=== PATIENT | female | born 1935 ===

== ENCOUNTER 2023-01-14 13:42 | Inpatient (IN) | payer OTHER ==
[~2023-01-14] VITALS: Ht 149.9 cm; Wt 34.5 kg
[2023-01-15 20:25] VITALS: BP 169/55; TEMP 97.9; O2SAT 96
[2023-01-15] MEDS ORDERED: ACET-2030 PO (22:05)
[2023-01-15] MEDS ORDERED: LIDO30AD10 TP (22:05)
[2023-01-15] MEDS ORDERED: ASPI81TA31 PO (22:05)
[2023-01-15] MEDS ORDERED: LEVO75TA7 PO (22:05)
[2023-01-15] MEDS ORDERED: OMEP20TA5 PO (22:05)
[2023-01-15] MEDS ORDERED: VALS40TA12 PO (22:05)
[2023-01-15] MEDS ORDERED: APIX5TAB PO (22:05)
[2023-01-15] MEDS ORDERED: CARV6.252 PO (22:05)
[2023-01-15] MEDS ORDERED: ATOR20TA PO (22:05)
[2023-01-15] MEDS ORDERED: LEVO50TA8 PO (22:05)
[2023-01-15] MEDS ORDERED: INSU100I40 SQ (22:05)
[2023-01-15] MEDS ORDERED: ESCI5TAB16 PO (22:05)
[2023-01-15] MEDS ORDERED: CHOL200026 PO (22:05)
[2023-01-15] MEDS ORDERED: SIME80TA15 PO (22:05)
[2023-01-15] MEDS ORDERED: METO10TA3 PO (22:05)
[2023-01-15] MEDS ORDERED: ANAS1TAB50 PO (22:11)
[2023-01-15] MEDS ORDERED: AMLO10TA4 PO (22:11)
[2023-01-15] MEDS ORDERED: MELATONIN 3 MG TABLET PO PRN (23:30)
[2023-01-16] MEDS ORDERED: ACETAMINOPHEN ES 500 MG TABLET PO PRN (03:30)
[2023-01-16] MEDS ORDERED: DEXTROSE 50% 50 ML DISP.SYRIN IV PRN (04:30)
[2023-01-16] MEDS: BLOOD SUGAR DIAGNOSTIC 1 EACH STRIP VI SCH ×4 (06:22→20:36)
[2023-01-16] MEDS: LEVOTHYROXINE SODIUM 50 MCG TABLET PO SCH (06:31)
[2023-01-16 06:43] VITALS: BP 173/55; TEMP 97.5; O2SAT 98
[2023-01-16] MEDS ORDERED: LEVOTHYROXINE SODIUM 50 MCG TABLET PO SCH (07:00)
[2023-01-16] MEDS ORDERED: SIMETHICONE 80 MG TAB.CHEW PO PRN (07:00)
[2023-01-16] MEDS ORDERED: METOCLOPRAMIDE HCL 10 MG TABLET PO SCH (07:30)
[2023-01-16 07:57] VITALS: BP 180/61; TEMP 97.7; O2SAT 99
[2023-01-16] MEDS ORDERED: CARVEDILOL 6.25 MG TABLET PO SCH (08:00)
[2023-01-16] MEDS: INSULIN REGULAR, HUMAN 300 UNIT/3 ML VIAL SQ PRN ×4 (08:47→20:50)
[2023-01-16] MEDS ORDERED: LIDOCAINE 5% PATCH TD SCH (09:00)
[2023-01-16] MEDS ORDERED: VALSARTAN 40 MG TABLET PO SCH (09:00)
[2023-01-16] MEDS ORDERED: ESCITALOPRAM OXALATE 10 MG TABLET PO SCH (09:00)
[2023-01-16] MEDS ORDERED: APIXABAN 2.5 MG TABLET PO SCH (09:00)
[2023-01-16] MEDS ORDERED: AMLODIPINE 10 MG TABLET PO SCH (09:00)
[2023-01-16] MEDS ORDERED: ASPIRIN 81 MG TAB.CHEW PO SCH (09:00)
[2023-01-16] MEDS ORDERED: ANASTROZOLE 1 MG TABLET PO SCH (09:00)
[2023-01-16] MEDS ORDERED: ACETAMINOPHEN ES 500 MG TABLET- SA PATIENTS-PAIN ONLY PO PRN (10:30)
[2023-01-16] MEDS ORDERED: CHOLECALCIFEROL 400 UNITS TABLET PO SCH (10:30)
[2023-01-16] MEDS ORDERED: CHOL-35 PO (10:36)
[2023-01-16] MEDS ORDERED: ACETAMINOPHEN 325 MG TABLET PO PRN (10:45)
[2023-01-16] MEDS ORDERED: CHOLECALCIFEROL 1,000 UNIT TABLET PO SCH ×2 (10:45→21:00)
[2023-01-16] MEDS: ASPIRIN 81 MG TAB.CHEW PO SCH (11:12)
[2023-01-16] MEDS: ESCITALOPRAM OXALATE 10 MG TABLET PO SCH (11:13)
[2023-01-16] MEDS: CARVEDILOL 6.25 MG TABLET PO SCH ×2 (11:13→17:08)
[2023-01-16] MEDS: AMLODIPINE 10 MG TABLET PO SCH (11:14)
[2023-01-16] MEDS: APIXABAN 5 MG TABLET PO SCH ×2 (11:15→17:10)
[2023-01-16] MEDS: VALSARTAN 40 MG TABLET PO SCH (11:42)
[2023-01-16] MEDS: ANASTROZOLE 1 MG TABLET PO SCH (11:42)
[2023-01-16] MEDS: LIDOCAINE 5% PATCH TD SCH (12:33)
[2023-01-16] MEDS: METOCLOPRAMIDE HCL 10 MG TABLET PO SCH ×2 (12:34→17:07)
[2023-01-16 14:37] LABS: BASOPHILS % (AUTO) 0.8 % (0.0-2.0); EOSINOPHILS # (AUTO) 0.1 K/uL (0.0-0.7); EOSINOPHILS % (AUTO) 2.3 % (0.0-7.0); HEMATOCRIT 33.6 % (31.2-41.9); HEMOGLOBIN 11.2 g/dL (10.9-14.3); LYMPHOCYTES # (AUTO) 0.6 K/uL (0.8-4.8); LYMPHOCYTES % (AUTO) 11.1 % (20.5-51.5); MEAN CORPUSCULAR HEMOGLOBIN 29.9 uug (24.7-32.8); MEAN CORPUSCULAR HGB CONC 33 g/dL (32.3-35.6); MONOCYTES # (AUTO) 0.5 K/uL (0.1-1.30); MONOCYTES % (AUTO) 8.8 % (0.0-11.0); PLATELET COUNT (AUTO) 352 K/uL (179-408); RED BLOOD CELL COUNT(AUTO) 3.73 MIL/uL (3.63-4.92); RED CELL DISTRIBUTION WIDTH 19.2 % (12.3-17.7); WHITE BLOOD COUNT (AUTO) 5.2 K/uL (3.8-11.8)
[2023-01-16 14:38] LABS: CREATININE 0.7 mg/dL (0.6-1.3); POTASSIUM 4.3 mmol/L (3.5-5.1)
[2023-01-16 14:41] LABS: DIFFERENTIAL COMMENT 1
[2023-01-16 14:49] LABS: ALBUMIN 2.6 g/dL (3.4-5.0); BILIRUBIN,TOTAL 0.7 mg/dL (0.2-1.0); MAGNESIUM 1.6 mg/dL (1.8-2.4); PHOSPHOROUS 3.2 mg/dL (2.5-4.9); TOTAL PROTEIN, SERUM 6.6 g/dL (6.4-8.2)
[2023-01-16 15:46] VITALS: BP 135/44; TEMP 97.8; O2SAT 98
[2023-01-16] MEDS: GLUCERNA SHAKE 237 ML CAN PO SCH (17:11)
[2023-01-16] MEDS: ATORVASTATIN 20 MG TABLET PO SCH (20:31)
[2023-01-16] MEDS: CHOLECALCIFEROL 1,000 UNIT TABLET PO SCH (20:31)
[2023-01-16 20:57] VITALS: BP 120/41; TEMP 97.2; O2SAT 99
[2023-01-16] MEDS ORDERED: PANTOPRAZOLE SODIUM 40 MG TABLET.DR PO SCH (21:00)
[2023-01-16] MEDS ORDERED: MISCELLANEOUS MED PO SCH (21:00)
[2023-01-16] MEDS ORDERED: ATORVASTATIN 20 MG TABLET PO SCH (21:00)
[2023-01-16] MEDS: MELATONIN 3 MG TABLET PO PRN (21:19)
[2023-01-16] MEDS: SIMETHICONE 80 MG TAB.CHEW PO PRN (21:25)
[2023-01-17 04:10] VITALS: BP 142/47; TEMP 98.2; O2SAT 100
[2023-01-17] MEDS: LEVOTHYROXINE SODIUM 75 MCG TABLET PO SCH (06:23)
[2023-01-17] MEDS: BLOOD SUGAR DIAGNOSTIC 1 EACH STRIP VI SCH ×4 (06:30→20:19)
[2023-01-17 06:35] LABS: BASOPHILS % (AUTO) 0.7 % (0.0-2.0); EOSINOPHILS # (AUTO) 0.2 K/uL (0.0-0.7); EOSINOPHILS % (AUTO) 5.1 % (0.0-7.0); HEMATOCRIT 30.4 % (31.2-41.9); HEMOGLOBIN 10.4 g/dL (10.9-14.3); LYMPHOCYTES # (AUTO) 0.7 K/uL (0.8-4.8); LYMPHOCYTES % (AUTO) 17.4 % (20.5-51.5); MEAN CORPUSCULAR HEMOGLOBIN 30.7 uug (24.7-32.8); MEAN CORPUSCULAR HGB CONC 34 g/dL (32.3-35.6); MEAN CORPUSCULAR VOLUME 89.5 fL (75.5-95.3); MONOCYTES # (AUTO) 0.5 K/uL (0.1-1.30); MONOCYTES % (AUTO) 11.8 % (0.0-11.0); NEUTROPHILS # (AUTO) 2.7 K/uL (1.8-8.9); PLATELET COUNT (AUTO) 295 K/uL (179-408); RED CELL DISTRIBUTION WIDTH 18.9 % (12.3-17.7); WHITE BLOOD COUNT (AUTO) 4.2 K/uL (3.8-11.8)
[2023-01-17 06:45] LABS: DIFFERENTIAL COMMENT 1
[2023-01-17 06:51] LABS: MAGNESIUM 1.7 mg/dL (1.8-2.4); PHOSPHOROUS 3.4 mg/dL (2.5-4.9)
[2023-01-17] MEDS: METOCLOPRAMIDE HCL 10 MG TABLET PO SCH ×3 (07:45→16:58)
[2023-01-17] MEDS: ASPIRIN 81 MG TAB.CHEW PO SCH (07:45)
[2023-01-17] MEDS: ESCITALOPRAM OXALATE 10 MG TABLET PO SCH (07:46)
[2023-01-17] MEDS: APIXABAN 5 MG TABLET PO SCH ×2 (07:47→17:00)
[2023-01-17] MEDS: VALSARTAN 40 MG TABLET PO SCH (07:47)
[2023-01-17] MEDS: CARVEDILOL 6.25 MG TABLET PO SCH ×2 (07:48→16:58)
[2023-01-17] MEDS: AMLODIPINE 10 MG TABLET PO SCH (07:48)
[2023-01-17] MEDS: LIDOCAINE 5% PATCH TD SCH (07:49)
[2023-01-17 07:53] VITALS: BP 170/52; TEMP 97.2; O2SAT 100
[2023-01-17] MEDS: ANASTROZOLE 1 MG TABLET PO SCH (07:53)
[2023-01-17] MEDS: GLUCERNA SHAKE 237 ML CAN PO SCH ×2 (07:55→17:00)
[2023-01-17] MEDS ORDERED: LEVOTHYROXINE SODIUM 75 MCG TABLET PO SCH (09:00)
[2023-01-17] MEDS ORDERED: LEVOTHYROXINE SODIUM 50 MCG TABLET PO SCH (09:00)
[2023-01-17] MEDS ORDERED: MAGNESIUM OXIDE 400 MG TABLET PO ONE (11:00)
[2023-01-17] MEDS ORDERED: FUROSEMIDE 20 MG TABLET PO SCH (11:15)
[2023-01-17] MEDS: INSULIN REGULAR, HUMAN 300 UNIT/3 ML VIAL SQ PRN (12:03)
[2023-01-17 15:56] VITALS: BP 145/54; TEMP 97.8; O2SAT 98
[2023-01-17] MEDS ORDERED: FUROSEMIDE 40 MG TABLET PO SCH (17:00)
[2023-01-17 20:01] VITALS: BP 141/43; TEMP 98.1; O2SAT 99
[2023-01-17] MEDS: CHOLECALCIFEROL 1,000 UNIT TABLET PO SCH (20:19)
[2023-01-17] MEDS: ATORVASTATIN 20 MG TABLET PO SCH (20:20)
[2023-01-17] MEDS: MELATONIN 3 MG TABLET PO PRN (20:23)
[2023-01-18] MEDS: SIMETHICONE 80 MG TAB.CHEW PO PRN (01:15)
[2023-01-18 05:22] VITALS: BP 140/45; TEMP 97.5; O2SAT 96
[2023-01-18] MEDS: LEVOTHYROXINE SODIUM 50 MCG TABLET PO SCH (06:16)
[2023-01-18] MEDS: BLOOD SUGAR DIAGNOSTIC 1 EACH STRIP VI SCH ×4 (06:24→20:17)
[2023-01-18 06:53] LABS: EOSINOPHILS # (AUTO) 0.2 K/uL (0.0-0.7); EOSINOPHILS % (AUTO) 5.1 % (0.0-7.0); HEMOGLOBIN 9.8 g/dL (10.9-14.3); LYMPHOCYTES # (AUTO) 0.7 K/uL (0.8-4.8); MEAN CORPUSCULAR HEMOGLOBIN 29.8 uug (24.7-32.8); MEAN CORPUSCULAR HGB CONC 33 g/dL (32.3-35.6); MEAN CORPUSCULAR VOLUME 90.9 fL (75.5-95.3); MONOCYTES # (AUTO) 0.5 K/uL (0.1-1.30); MONOCYTES % (AUTO) 12.5 % (0.0-11.0); NEUTROPHILS # (AUTO) 2.5 K/uL (1.8-8.9); NEUTROPHILS % (AUTO) 62.4 % (38.5-71.5); PLATELET COUNT (AUTO) 288 K/uL (179-408); RED CELL DISTRIBUTION WIDTH 19.6 % (12.3-17.7); WHITE BLOOD COUNT (AUTO) 3.9 K/uL (3.8-11.8)
[2023-01-18 07:05] LABS: DIFFERENTIAL COMMENT 1
[2023-01-18 07:15] LABS: ALANINE AMINOTRANSFERASE 29 U/L (14-59); ALBUMIN 2.2 g/dL (3.4-5.0); ALKALINE PHOSPHATASE 93 U/L (50-136); ASPARTATE AMINOTRANSFERASE 14 U/L (15-37); BILIRUBIN,TOTAL 0.6 mg/dL (0.2-1.0); CALCIUM 8.7 mg/dL (8.5-10.1); CARBON DIOXIDE 29 mmol/L (21-32); CHLORIDE 104 mmol/L (98-107); CREATININE 0.5 mg/dL (0.6-1.3); GLUCOSE 150 mg/dL (74-106); MAGNESIUM 1.7 mg/dL (1.8-2.4); PHOSPHOROUS 3.1 mg/dL (2.5-4.9); POTASSIUM 4.3 mmol/L (3.5-5.1); SODIUM SERUM 139 mmol/L (136-145); TOTAL PROTEIN, SERUM 5.9 g/dL (6.4-8.2); UREA NITROGEN, BLOOD 19 mg/dL (7-18)
[2023-01-18 08:33] VITALS: BP 154/48; TEMP 97.4
[2023-01-18] MEDS: LIDOCAINE 5% PATCH TD SCH (09:00)
[2023-01-18] MEDS: GLUCERNA SHAKE 237 ML CAN PO SCH ×2 (09:12→18:09)
[2023-01-18] MEDS: ANASTROZOLE 1 MG TABLET PO SCH (09:12)
[2023-01-18] MEDS: ASPIRIN 81 MG TAB.CHEW PO SCH (09:13)
[2023-01-18] MEDS: METOCLOPRAMIDE HCL 10 MG TABLET PO SCH ×3 (09:13→18:03)
[2023-01-18] MEDS: AMLODIPINE 10 MG TABLET PO SCH (09:13)
[2023-01-18] MEDS: ESCITALOPRAM OXALATE 10 MG TABLET PO SCH (09:14)
[2023-01-18] MEDS: VALSARTAN 40 MG TABLET PO SCH (09:14)
[2023-01-18] MEDS: CARVEDILOL 6.25 MG TABLET PO SCH ×2 (09:15→18:03)
[2023-01-18] MEDS: APIXABAN 5 MG TABLET PO SCH ×2 (09:16→18:02)
[2023-01-18] MEDS ORDERED: MAGNESIUM OXIDE 400 MG TABLET PO ONE (09:45)
[2023-01-18] MEDS: INSULIN REGULAR, HUMAN 300 UNIT/3 ML VIAL SQ PRN ×3 (12:49→20:36)
[2023-01-18 20:00] VITALS: BP 114/58; TEMP 97.9; O2SAT 100
[2023-01-18] MEDS: ATORVASTATIN 20 MG TABLET PO SCH (20:28)
[2023-01-18] MEDS: CHOLECALCIFEROL 1,000 UNIT TABLET PO SCH (20:29)
[2023-01-19 04:10] VITALS: BP 144/49; TEMP 98; O2SAT 100
[2023-01-19] MEDS: LEVOTHYROXINE SODIUM 75 MCG TABLET PO SCH (05:52)
[2023-01-19] MEDS: BLOOD SUGAR DIAGNOSTIC 1 EACH STRIP VI SCH ×4 (06:37→20:52)
[2023-01-19 08:00] VITALS: BP 129/64; TEMP 98.2; O2SAT 97
[2023-01-19] MEDS: ASPIRIN 81 MG TAB.CHEW PO SCH (08:53)
[2023-01-19] MEDS: ESCITALOPRAM OXALATE 10 MG TABLET PO SCH (08:55)
[2023-01-19] MEDS: APIXABAN 5 MG TABLET PO SCH ×2 (08:55→17:05)
[2023-01-19] MEDS: METOCLOPRAMIDE HCL 10 MG TABLET PO SCH ×3 (08:56→17:05)
[2023-01-19] MEDS: CARVEDILOL 6.25 MG TABLET PO SCH ×2 (08:56→17:06)
[2023-01-19] MEDS: VALSARTAN 40 MG TABLET PO SCH (08:56)
[2023-01-19] MEDS: GLUCERNA SHAKE 237 ML CAN PO SCH ×2 (08:57→18:18)
[2023-01-19] MEDS: LIDOCAINE 5% PATCH TD SCH (08:58)
[2023-01-19] MEDS: ANASTROZOLE 1 MG TABLET PO SCH (09:00)
[2023-01-19] MEDS: AMLODIPINE 10 MG TABLET PO SCH (09:09)
[2023-01-19] MEDS: INSULIN REGULAR, HUMAN 300 UNIT/3 ML VIAL SQ PRN ×3 (11:45→21:10)
[2023-01-19 15:07] VITALS: BP 119/40; TEMP 97.8; O2SAT 97
[2023-01-19 16:08] VITALS: O2SAT 97
[2023-01-19 16:52] VITALS: BP 119/40; TEMP 97.8; O2SAT 97
[2023-01-19 20:30] VITALS: BP 134/43; TEMP 97.7; O2SAT 98
[2023-01-19] MEDS: ATORVASTATIN 20 MG TABLET PO SCH (21:04)
[2023-01-19] MEDS: CHOLECALCIFEROL 1,000 UNIT TABLET PO SCH (21:04)
[2023-01-19] MEDS: MELATONIN 3 MG TABLET PO PRN (21:06)
[2023-01-20 04:28] VITALS: BP 148/45; TEMP 98.6; O2SAT 98
[2023-01-20] MEDS: LEVOTHYROXINE SODIUM 50 MCG TABLET PO SCH (05:59)
[2023-01-20] MEDS: BLOOD SUGAR DIAGNOSTIC 1 EACH STRIP VI SCH ×4 (06:38→20:06)
[2023-01-20 07:41] VITALS: BP 146/54; TEMP 98.2; O2SAT 97
[2023-01-20] MEDS: ASPIRIN 81 MG TAB.CHEW PO SCH (08:25)
[2023-01-20] MEDS: ESCITALOPRAM OXALATE 10 MG TABLET PO SCH (08:25)
[2023-01-20] MEDS: METOCLOPRAMIDE HCL 10 MG TABLET PO SCH ×3 (08:25→16:45)
[2023-01-20] MEDS: CARVEDILOL 6.25 MG TABLET PO SCH ×2 (08:25→16:45)
[2023-01-20] MEDS: VALSARTAN 40 MG TABLET PO SCH (08:26)
[2023-01-20] MEDS: AMLODIPINE 10 MG TABLET PO SCH (08:26)
[2023-01-20] MEDS: ANASTROZOLE 1 MG TABLET PO SCH (08:27)
[2023-01-20] MEDS: APIXABAN 5 MG TABLET PO SCH ×2 (08:27→16:47)
[2023-01-20] MEDS: GLUCERNA SHAKE 237 ML CAN PO SCH ×2 (08:28→16:48)
[2023-01-20] MEDS: LIDOCAINE 5% PATCH TD SCH (08:32)
[2023-01-20] MEDS: SIMETHICONE 80 MG TAB.CHEW PO PRN (12:11)
[2023-01-20] MEDS: INSULIN REGULAR, HUMAN 300 UNIT/3 ML VIAL SQ PRN ×2 (12:12→16:47)
[2023-01-20] MEDS ORDERED: HYDROCODONE BIT/HOMATROPINE 5 ML UDC PO PRN (12:30)
[2023-01-20] MEDS ORDERED: BENZOCAINE/MENTH/CETYLPYRD LOZENGE MM PRN (12:30)
[2023-01-20 15:07] VITALS: BP 123/44; TEMP 98.2; O2SAT 96
[2023-01-20] MEDS: ATORVASTATIN 20 MG TABLET PO SCH (20:05)
[2023-01-20] MEDS: CHOLECALCIFEROL 1,000 UNIT TABLET PO SCH (20:05)
[2023-01-20] MEDS: MELATONIN 3 MG TABLET PO PRN (20:06)
[2023-01-20] MEDS: DOCUSATE SODIUM 100 MG CAPSULE PO SCH (20:10)
[2023-01-20 20:46] VITALS: BP 130/41; TEMP 97.5; O2SAT 97
[2023-01-21 04:50] VITALS: BP 148/54; TEMP 98; O2SAT 95
[2023-01-21] MEDS: LEVOTHYROXINE SODIUM 75 MCG TABLET PO SCH (05:38)
[2023-01-21] MEDS: BLOOD SUGAR DIAGNOSTIC 1 EACH STRIP VI SCH ×4 (05:38→20:54)
[2023-01-21 06:41] LABS: EOSINOPHILS # (AUTO) 0.3 K/uL (0.0-0.7); EOSINOPHILS % (AUTO) 7.7 % (0.0-7.0); HEMATOCRIT 31.1 % (31.2-41.9); HEMOGLOBIN 10.2 g/dL (10.9-14.3); LYMPHOCYTES # (AUTO) 0.8 K/uL (0.8-4.8); LYMPHOCYTES % (AUTO) 22.3 % (20.5-51.5); MEAN CORPUSCULAR HEMOGLOBIN 30.3 uug (24.7-32.8); MEAN CORPUSCULAR HGB CONC 33 g/dL (32.3-35.6); MEAN CORPUSCULAR VOLUME 92.1 fL (75.5-95.3); MONOCYTES # (AUTO) 0.6 K/uL (0.1-1.30); MONOCYTES % (AUTO) 15.8 % (0.0-11.0); NEUTROPHILS # (AUTO) 1.9 K/uL (1.8-8.9); NEUTROPHILS % (AUTO) 53.2 % (38.5-71.5); PLATELET COUNT (AUTO) 242 K/uL (179-408); RED BLOOD CELL COUNT(AUTO) 3.38 MIL/uL (3.63-4.92); WHITE BLOOD COUNT (AUTO) 3.5 K/uL (3.8-11.8)
[2023-01-21 06:59] LABS: DIFFERENTIAL COMMENT 1
[2023-01-21 07:11] LABS: CALCIUM 9.4 mg/dL (8.5-10.1); CREATININE 0.6 mg/dL (0.6-1.3); MAGNESIUM 1.9 mg/dL (1.8-2.4); PHOSPHOROUS 5.4 mg/dL (2.5-4.9); POTASSIUM 5.7 mmol/L (3.5-5.1)
[2023-01-21 08:00] VITALS: BP 151/57; TEMP 97; O2SAT 97
[2023-01-21] MEDS ORDERED: GUAIFENESIN/DEXTROMETHORPHAN 5 ML UDC PO PRN (08:15)
[2023-01-21 09:00] VITALS: BP 151/57; TEMP 97; O2SAT 97
[2023-01-21] MEDS ORDERED: SODIUM POLYSTYRENE SULFONATE 15 G/60 ML LIQUID UDC PO ONE (09:00)
[2023-01-21] MEDS: LIDOCAINE 5% PATCH TD SCH (09:00)
[2023-01-21] MEDS: GLUCERNA SHAKE 237 ML CAN PO SCH ×2 (09:17→17:20)
[2023-01-21] MEDS: METOCLOPRAMIDE HCL 10 MG TABLET PO SCH ×3 (09:17→17:18)
[2023-01-21] MEDS: ASPIRIN 81 MG TAB.CHEW PO SCH (09:18)
[2023-01-21] MEDS: ESCITALOPRAM OXALATE 10 MG TABLET PO SCH (09:18)
[2023-01-21] MEDS: CARVEDILOL 6.25 MG TABLET PO SCH ×2 (09:18→17:19)
[2023-01-21] MEDS: AMLODIPINE 10 MG TABLET PO SCH (09:20)
[2023-01-21] MEDS: APIXABAN 5 MG TABLET PO SCH ×2 (09:28→17:19)
[2023-01-21] MEDS: ANASTROZOLE 1 MG TABLET PO SCH (09:35)
[2023-01-21] MEDS: INSULIN REGULAR, HUMAN 300 UNIT/3 ML VIAL SQ PRN ×3 (11:46→20:56)
[2023-01-21 11:58] LABS: ANISOCYTOSIS 2+; BAND % (MANUAL) 1 % (0-10); BASOPHILS % (MANUAL) 1 % (0-2); EOSINOPHILS % (MANUAL) 7 % (0-8); LYMPHOCYTES % (MANUAL) 24 % (20-40); MONOCYTES % (MANUAL) 14 % (2-10); NEUTROPHILS % (MANUAL) 53 % (42-75); PLATELET ESTIMATE ADEQUATE
[2023-01-21] MEDS: PIPERACILLIN SODIUM/TAZOBACTAM 3.375 G in IV DEXTROSE 5% 100 ML IV SCH ×2 (14:00→22:59)
[2023-01-21] MEDS ORDERED: PIPERACILLIN SODIUM/TAZOBACTAM 3.375 G in IV DEXTROSE 5% 50 ML IV SCH (14:00)
[2023-01-21 14:24] LABS: CALCIUM 9.6 mg/dL (8.5-10.1); CREATININE 0.7 mg/dL (0.6-1.3); POTASSIUM 5.4 mmol/L (3.5-5.1)
[2023-01-21 16:05] VITALS: BP 150/53; TEMP 98.2; O2SAT 98
[2023-01-21 20:17] VITALS: BP 149/61; TEMP 97.8; O2SAT 94
[2023-01-21] MEDS: CHOLECALCIFEROL 1,000 UNIT TABLET PO SCH (20:56)
[2023-01-21] MEDS: DOCUSATE SODIUM 100 MG CAPSULE PO SCH (20:56)
[2023-01-21] MEDS: ATORVASTATIN 20 MG TABLET PO SCH (20:56)
[2023-01-21] MEDS: MELATONIN 3 MG TABLET PO PRN (21:06)
[2023-01-22 04:00] VITALS: BP 147/48; TEMP 97.9; O2SAT 98
[2023-01-22] MEDS: PIPERACILLIN SODIUM/TAZOBACTAM 3.375 G in IV DEXTROSE 5% 100 ML IV SCH (06:07)
[2023-01-22] MEDS: LEVOTHYROXINE SODIUM 50 MCG TABLET PO SCH (06:14)
[2023-01-22] MEDS: BLOOD SUGAR DIAGNOSTIC 1 EACH STRIP VI SCH ×2 (06:41→12:16)
[2023-01-22 07:18] LABS: BASOPHILS % (AUTO) 0.8 % (0.0-2.0); EOSINOPHILS # (AUTO) 0.3 K/uL (0.0-0.7); EOSINOPHILS % (AUTO) 6.1 % (0.0-7.0); HEMATOCRIT 30.9 % (31.2-41.9); HEMOGLOBIN 10.4 g/dL (10.9-14.3); LYMPHOCYTES # (AUTO) 0.6 K/uL (0.8-4.8); LYMPHOCYTES % (AUTO) 13.4 % (20.5-51.5); MEAN CORPUSCULAR HGB CONC 34 g/dL (32.3-35.6); MEAN CORPUSCULAR VOLUME 91.6 fL (75.5-95.3); MONOCYTES # (AUTO) 0.5 K/uL (0.1-1.30); MONOCYTES % (AUTO) 12.6 % (0.0-11.0); NEUTROPHILS # (AUTO) 2.9 K/uL (1.8-8.9); NEUTROPHILS % (AUTO) 67.1 % (38.5-71.5); PLATELET COUNT (AUTO) 242 K/uL (179-408); RED BLOOD CELL COUNT(AUTO) 3.37 MIL/uL (3.63-4.92); RED CELL DISTRIBUTION WIDTH 20.1 % (12.3-17.7); WHITE BLOOD COUNT (AUTO) 4.3 K/uL (3.8-11.8)
[2023-01-22 07:27] LABS: DIFFERENTIAL COMMENT 1
[2023-01-22 07:28] LABS: CALCIUM 9.2 mg/dL (8.5-10.1); CREATININE 0.7 mg/dL (0.6-1.3); MAGNESIUM 1.8 mg/dL (1.8-2.4); PHOSPHOROUS 5.4 mg/dL (2.5-4.9)
[2023-01-22 07:49] VITALS: BP 164/60; TEMP 98.4; O2SAT 96
[2023-01-22] MEDS: GLUCERNA SHAKE 237 ML CAN PO SCH (08:13)
[2023-01-22] MEDS: METOCLOPRAMIDE HCL 10 MG TABLET PO SCH (08:30)
[2023-01-22] MEDS: ASPIRIN 81 MG TAB.CHEW PO SCH (08:31)
[2023-01-22] MEDS: ANASTROZOLE 1 MG TABLET PO SCH (08:33)
[2023-01-22] MEDS: APIXABAN 5 MG TABLET PO SCH (08:35)
[2023-01-22 08:36] VITALS: BP 164/60
[2023-01-22] MEDS: AMLODIPINE 10 MG TABLET PO SCH (08:36)
[2023-01-22] MEDS: CARVEDILOL 6.25 MG TABLET PO SCH (08:36)
[2023-01-22] MEDS: LIDOCAINE 5% PATCH TD SCH ×2 (08:36→09:00)
[2023-01-22] MEDS: ESCITALOPRAM OXALATE 10 MG TABLET PO SCH (08:38)
[2023-01-22] MEDS: INSULIN REGULAR, HUMAN 300 UNIT/3 ML VIAL SQ PRN (12:17)
[2023-01-22] MEDS ORDERED: ESCI5TAB PO (14:41)
[2023-01-22] MEDS ORDERED: ERGO400C PO (14:41)
[2023-01-22] MEDS ORDERED: HYDR473S4 PO (14:41)
[2023-01-22] MEDS ORDERED: ACET325C7 PO (14:41)
[2023-01-22] MEDS ORDERED: NUT.237L36 PO (14:41)
[2023-01-22] MEDS ORDERED: BENZ1LOZ58 MM (14:41)
[2023-01-22] MEDS ORDERED: MELA5TAB20 PO (14:41)
[2023-01-22] MEDS ORDERED: ROBITUSSIN DM PO (14:41)
[2023-01-22] MEDS ORDERED: BLOO-360 IN (14:41)
[2023-01-22] MEDS ORDERED: INSU100V28 (14:41)
[2023-01-22] MEDS ORDERED: METO-295 PO (14:41)
[2023-01-22] MEDS ORDERED: PIPE3.379 IV ×2 (14:41→19:03)
== END 2023-01-22 13:04 | disposition short-term general hospital (02) | DRG 133 ==
PROVIDERS: ADMIT Internal Medicine; ATTEND Physical Medicine & Rehabilitation Pain Medicine
DX: J96.01 Acute respiratory failure with hypoxia (principal); I50.43 Acute on chronic combined systolic (congestive) and diastolic (congestive) heart failure; E87.4 Mixed disorder of acid-base balance; I47.20 Ventricular tachycardia, unspecified; J18.9 Pneumonia, unspecified organism; I82.621 Acute embolism and thrombosis of deep veins of right upper extremity; E87.1 Hypo-osmolality and hyponatremia; I11.0 Hypertensive heart disease with heart failure; D64.9 Anemia, unspecified; E11.9 Type 2 diabetes mellitus without complications; E03.9 Hypothyroidism, unspecified; R53.1 Weakness; Z86.73 Personal history of transient ischemic attack (TIA), and cerebral infarction without residual deficits; Z85.3 Personal history of malignant neoplasm of breast; E78.5 Hyperlipidemia, unspecified; F32.A Depression, unspecified; E87.5 Hyperkalemia; I25.10 Atherosclerotic heart disease of native coronary artery without angina pectoris; J98.11 Atelectasis; R13.10 Dysphagia, unspecified; Z79.01 Long term (current) use of anticoagulants; Z79.810 Long term (current) use of selective estrogen receptor modulators (SERMs); Z79.811 Long term (current) use of aromatase inhibitors; Z86.718 Personal history of other venous thrombosis and embolism
CPT/HCPCS: 36415; 70030-TC; 71045; 76604; 83735; 84100; 85025; 85730; 86140; 97535-GO-CO; A4663; J1815; J2543; J8597

== ENCOUNTER 2023-01-22 13:24 | Inpatient (IN) | payer OTHER ==
[~2023-01-22] VITALS: Ht 149.9 cm; Wt 34.5 kg
[~2023-01-22 13:24] MED LIST: ACET-2030 PO; AMLO10TA4 PO; ANAS1TAB50 PO; APIX5TAB PO; ASPI81TA31 PO; ATOR20TA PO; CARV6.252 PO; CHOL-35 PO; ESCI5TAB16 PO; INSU100I40 SQ; LEVO50TA8 PO; LEVO75TA7 PO; LIDO30AD10 TP; METO10TA3 PO; OMEP20TA5 PO; SIME80TA15 PO; VALS40TA12 PO
[2023-01-22] MEDS ORDERED: ACET325C7 PO (14:41)
[2023-01-22] MEDS ORDERED: NUT.237L36 PO (14:41)
[2023-01-22] MEDS ORDERED: METO-295 PO (14:41)
[2023-01-22] MEDS ORDERED: BENZ1LOZ58 MM (14:41)
[2023-01-22] MEDS ORDERED: INSU100V28 (14:41)
[2023-01-22] MEDS ORDERED: BLOO-360 IN (14:41)
[2023-01-22] MEDS ORDERED: PIPE3.379 IV ×2 (14:41→19:03)
[2023-01-22] MEDS ORDERED: HYDR473S4 PO (14:41)
[2023-01-22] MEDS ORDERED: ERGO400C PO (14:41)
[2023-01-22] MEDS ORDERED: MELA5TAB20 PO (14:41)
[2023-01-22] MEDS ORDERED: ESCI5TAB PO (14:41)
[2023-01-22] MEDS ORDERED: ROBITUSSIN DM PO (14:41)
[2023-01-22 15:13] VITALS: BP 164/61; TEMP 98.4; O2SAT 100
[2023-01-22 18:11] VITALS: BP 164/61; TEMP 98.4; O2SAT 100
[2023-01-22] MEDS ORDERED: DEXTROSE 50% 50 ML DISP.SYRIN IV PRN (18:15)
[2023-01-22] MEDS ORDERED: BENZOCAINE/MENTH/CETYLPYRD LOZENGE MM PRN (18:15)
[2023-01-22] MEDS ORDERED: HYDROCODONE BIT/HOMATROPINE 5 ML UDC PO PRN (18:15)
[2023-01-22 20:00] VITALS: BP 170/54; TEMP 97.5; O2SAT 99
[2023-01-22] MEDS ORDERED: GUAIFENESIN/DEXTROMETHORPHAN 5 ML UDC PO PRN (20:00)
[2023-01-22] MEDS: ATORVASTATIN 20 MG TABLET PO SCH (20:49)
[2023-01-22] MEDS: CHOLECALCIFEROL 1,000 UNIT TABLET PO SCH (20:49)
[2023-01-22] MEDS: SIMETHICONE 80 MG TAB.CHEW PO PRN (20:49)
[2023-01-22] MEDS: MELATONIN 3 MG TABLET PO PRN (20:50)
[2023-01-22] MEDS ORDERED: BLOOD SUGAR DIAGNOSTIC 1 EACH STRIP VI SCH (21:00)
[2023-01-22] MEDS ORDERED: CHOLECALCIFEROL 1,000 UNIT TABLET PO SCH (21:00)
[2023-01-22] MEDS: BLOOD SUGAR DIAGNOSTIC 1 EACH STRIP VI SCH (21:06)
[2023-01-22] MEDS: INSULIN REGULAR, HUMAN 300 UNIT/3 ML VIAL SQ PRN (21:08)
[2023-01-22] MEDS: PIPERACILLIN SODIUM/TAZOBACTAM 3.375 G in IV DEXTROSE 5% 100 ML IV SCH (21:58)
[2023-01-22] MEDS: DOCUSATE SODIUM 100 MG CAPSULE PO PRN (21:59)
[2023-01-23 04:00] VITALS: BP 131/73; TEMP 97.7; O2SAT 95
[2023-01-23] MEDS: PIPERACILLIN SODIUM/TAZOBACTAM 3.375 G in IV DEXTROSE 5% 100 ML IV SCH ×3 (05:15→22:14)
[2023-01-23] MEDS: LEVOTHYROXINE SODIUM 75 MCG TABLET PO SCH (06:21)
[2023-01-23] MEDS: BLOOD SUGAR DIAGNOSTIC 1 EACH STRIP VI SCH ×4 (06:32→20:25)
[2023-01-23 07:54] LABS: BASOPHILS % (AUTO) 0.6 % (0.0-2.0); DIFFERENTIAL COMMENT 1; EOSINOPHILS # (AUTO) 0.1 K/uL (0.0-0.7); EOSINOPHILS % (AUTO) 1.9 % (0.0-7.0); HEMATOCRIT 31.8 % (31.2-41.9); HEMOGLOBIN 10.6 g/dL (10.9-14.3); LYMPHOCYTES # (AUTO) 0.6 K/uL (0.8-4.8); LYMPHOCYTES % (AUTO) 11.8 % (20.5-51.5); MEAN CORPUSCULAR HEMOGLOBIN 30.8 uug (24.7-32.8); MEAN CORPUSCULAR HGB CONC 33 g/dL (32.3-35.6); MEAN CORPUSCULAR VOLUME 92.1 fL (75.5-95.3); MONOCYTES # (AUTO) 0.6 K/uL (0.1-1.30); MONOCYTES % (AUTO) 11.9 % (0.0-11.0); NEUTROPHILS # (AUTO) 3.8 K/uL (1.8-8.9); NEUTROPHILS % (AUTO) 73.8 % (38.5-71.5); PLATELET COUNT (AUTO) 218 K/uL (179-408); RED BLOOD CELL COUNT(AUTO) 3.45 MIL/uL (3.63-4.92); RED CELL DISTRIBUTION WIDTH 20.2 % (12.3-17.7); WHITE BLOOD COUNT (AUTO) 5.2 K/uL (3.8-11.8)
[2023-01-23 08:00] VITALS: BP 152/45; TEMP 98.1; O2SAT 98
[2023-01-23 08:06] LABS: CREATININE 0.7 mg/dL (0.6-1.3); POTASSIUM 4.1 mmol/L (3.5-5.1)
[2023-01-23] MEDS: METOCLOPRAMIDE HCL 10 MG TABLET PO SCH ×3 (08:16→16:54)
[2023-01-23] MEDS: ESCITALOPRAM OXALATE 10 MG TABLET PO SCH (08:17)
[2023-01-23] MEDS: GLUCERNA 1.2 1000ML LIQUID PO SCH ×2 (08:17→16:55)
[2023-01-23] MEDS: ASPIRIN 81 MG TAB.CHEW PO SCH (08:17)
[2023-01-23] MEDS: CARVEDILOL 6.25 MG TABLET PO SCH ×2 (08:17→16:55)
[2023-01-23] MEDS: LIDOCAINE 5% PATCH TD SCH ×2 (08:20→08:48)
[2023-01-23] MEDS: APIXABAN 5 MG TABLET PO SCH ×2 (08:20→20:16)
[2023-01-23] MEDS: INSULIN REGULAR, HUMAN 300 UNIT/3 ML VIAL SQ PRN ×4 (08:20→20:40)
[2023-01-23] MEDS: ANASTROZOLE 1 MG TABLET PO SCH (08:20)
[2023-01-23 11:15] VITALS: BP 129/45; TEMP 98.4; O2SAT 95
[2023-01-23] MEDS: SIMETHICONE 80 MG TAB.CHEW PO PRN ×2 (11:45→20:32)
[2023-01-23 15:35] VITALS: BP 153/50; TEMP 98.4; O2SAT 97
[2023-01-23 20:00] VITALS: BP 135/51; TEMP 98.1; O2SAT 97
[2023-01-23] MEDS: CHOLECALCIFEROL 1,000 UNIT TABLET PO SCH (20:15)
[2023-01-23] MEDS: ATORVASTATIN 20 MG TABLET PO SCH (20:15)
[2023-01-23] MEDS: MELATONIN 3 MG TABLET PO PRN (21:25)
[2023-01-24] MEDS: PIPERACILLIN SODIUM/TAZOBACTAM 3.375 G in IV DEXTROSE 5% 100 ML IV SCH ×3 (05:31→21:17)
[2023-01-24 06:30] LABS: EOSINOPHILS # (AUTO) 0.3 K/uL (0.0-0.7); EOSINOPHILS % (AUTO) 7.4 % (0.0-7.0); HEMATOCRIT 28.8 % (31.2-41.9); HEMOGLOBIN 9.7 g/dL (10.9-14.3); LYMPHOCYTES # (AUTO) 0.8 K/uL (0.8-4.8); LYMPHOCYTES % (AUTO) 20.3 % (20.5-51.5); MEAN CORPUSCULAR HEMOGLOBIN 31.1 uug (24.7-32.8); MEAN CORPUSCULAR HGB CONC 34 g/dL (32.3-35.6); MEAN CORPUSCULAR VOLUME 92.1 fL (75.5-95.3); MONOCYTES # (AUTO) 0.6 K/uL (0.1-1.30); MONOCYTES % (AUTO) 14.4 % (0.0-11.0); NEUTROPHILS # (AUTO) 2.2 K/uL (1.8-8.9); NEUTROPHILS % (AUTO) 56.9 % (38.5-71.5); PLATELET COUNT (AUTO) 192 K/uL (179-408); RED BLOOD CELL COUNT(AUTO) 3.12 MIL/uL (3.63-4.92); RED CELL DISTRIBUTION WIDTH 19.9 % (12.3-17.7); WHITE BLOOD COUNT (AUTO) 3.9 K/uL (3.8-11.8)
[2023-01-24 06:32] VITALS: BP 166/65; TEMP 97.9; O2SAT 98
[2023-01-24] MEDS: LEVOTHYROXINE SODIUM 50 MCG TABLET PO SCH (06:32)
[2023-01-24 06:36] LABS: CARBON DIOXIDE 28 mmol/L (21-32); CHLORIDE 100 mmol/L (98-107); CREATININE 0.6 mg/dL (0.6-1.3); GLUCOSE 143 mg/dL (74-106); SODIUM SERUM 136 mmol/L (136-145); UREA NITROGEN, BLOOD 17 mg/dL (7-18)
[2023-01-24 06:47] LABS: DIFFERENTIAL COMMENT 1
[2023-01-24] MEDS: BLOOD SUGAR DIAGNOSTIC 1 EACH STRIP VI SCH ×4 (06:49→20:35)
[2023-01-24] MEDS: GLUCERNA 1.2 1000ML LIQUID PO SCH ×2 (07:30→16:10)
[2023-01-24] MEDS: ANASTROZOLE 1 MG TABLET PO SCH (08:28)
[2023-01-24] MEDS: METOCLOPRAMIDE HCL 10 MG TABLET PO SCH ×3 (08:29→16:14)
[2023-01-24] MEDS: APIXABAN 5 MG TABLET PO SCH ×2 (08:29→20:18)
[2023-01-24] MEDS: ESCITALOPRAM OXALATE 10 MG TABLET PO SCH (08:30)
[2023-01-24] MEDS: ASPIRIN 81 MG TAB.CHEW PO SCH (08:30)
[2023-01-24] MEDS: CARVEDILOL 6.25 MG TABLET PO SCH ×2 (08:30→16:15)
[2023-01-24] MEDS: LIDOCAINE 5% PATCH TD SCH (08:31)
[2023-01-24 11:31] VITALS: BP 146/53; TEMP 97.7; O2SAT 96
[2023-01-24] MEDS: INSULIN REGULAR, HUMAN 300 UNIT/3 ML VIAL SQ PRN (14:29)
[2023-01-24 16:27] VITALS: BP 159/57; TEMP 97.6; O2SAT 96
[2023-01-24] MEDS: ATORVASTATIN 20 MG TABLET PO SCH (20:17)
[2023-01-24] MEDS: CHOLECALCIFEROL 1,000 UNIT TABLET PO SCH (20:17)
[2023-01-24] MEDS: MELATONIN 3 MG TABLET PO PRN (21:25)
[2023-01-24] MEDS: SIMETHICONE 80 MG TAB.CHEW PO PRN (21:25)
[2023-01-24 22:08] VITALS: BP 138/82; TEMP 98.8
[2023-01-25 05:30] VITALS: BP 143/54; TEMP 98.3
[2023-01-25] MEDS: PIPERACILLIN SODIUM/TAZOBACTAM 3.375 G in IV DEXTROSE 5% 100 ML IV SCH ×3 (05:39→22:16)
[2023-01-25] MEDS: LEVOTHYROXINE SODIUM 75 MCG TABLET PO SCH (06:54)
[2023-01-25] MEDS: METOCLOPRAMIDE HCL 10 MG TABLET PO SCH ×3 (06:55→16:29)
[2023-01-25] MEDS: BLOOD SUGAR DIAGNOSTIC 1 EACH STRIP VI SCH ×4 (07:11→20:45)
[2023-01-25 07:13] LABS: BASOPHILS % (AUTO) 1.3 % (0.0-2.0); EOSINOPHILS # (AUTO) 0.3 K/uL (0.0-0.7); EOSINOPHILS % (AUTO) 7.5 % (0.0-7.0); HEMATOCRIT 30.1 % (31.2-41.9); HEMOGLOBIN 10.2 g/dL (10.9-14.3); LYMPHOCYTES # (AUTO) 0.7 K/uL (0.8-4.8); LYMPHOCYTES % (AUTO) 18.8 % (20.5-51.5); MEAN CORPUSCULAR HEMOGLOBIN 31.2 uug (24.7-32.8); MEAN CORPUSCULAR HGB CONC 34 g/dL (32.3-35.6); MEAN CORPUSCULAR VOLUME 92.3 fL (75.5-95.3); MONOCYTES # (AUTO) 0.5 K/uL (0.1-1.30); MONOCYTES % (AUTO) 13.9 % (0.0-11.0); NEUTROPHILS # (AUTO) 2.2 K/uL (1.8-8.9); NEUTROPHILS % (AUTO) 58.5 % (38.5-71.5); PLATELET COUNT (AUTO) 196 K/uL (179-408); RED BLOOD CELL COUNT(AUTO) 3.26 MIL/uL (3.63-4.92); RED CELL DISTRIBUTION WIDTH 20.2 % (12.3-17.7); WHITE BLOOD COUNT (AUTO) 3.7 K/uL (3.8-11.8)
[2023-01-25 07:26] LABS: DIFFERENTIAL COMMENT 1
[2023-01-25 07:31] LABS: CALCIUM 8.9 mg/dL (8.5-10.1); CARBON DIOXIDE 26 mmol/L (21-32); CHLORIDE 102 mmol/L (98-107); CREATININE 0.7 mg/dL (0.6-1.3); GLUCOSE 150 mg/dL (74-106); POTASSIUM 4.1 mmol/L (3.5-5.1); SODIUM SERUM 134 mmol/L (136-145); UREA NITROGEN, BLOOD 20 mg/dL (7-18)
[2023-01-25] MEDS: ASPIRIN 81 MG TAB.CHEW PO SCH (08:40)
[2023-01-25] MEDS: ESCITALOPRAM OXALATE 10 MG TABLET PO SCH (08:41)
[2023-01-25] MEDS: CARVEDILOL 6.25 MG TABLET PO SCH ×2 (08:42→16:29)
[2023-01-25] MEDS: APIXABAN 5 MG TABLET PO SCH ×2 (08:43→20:36)
[2023-01-25] MEDS: ANASTROZOLE 1 MG TABLET PO SCH (08:44)
[2023-01-25] MEDS: GLUCERNA 1.2 1000ML LIQUID PO SCH ×2 (08:46→16:32)
[2023-01-25] MEDS: LIDOCAINE 5% PATCH TD SCH (08:49)
[2023-01-25 11:17] VITALS: BP 132/46; TEMP 98.5; O2SAT 96
[2023-01-25] MEDS: INSULIN REGULAR, HUMAN 300 UNIT/3 ML VIAL SQ PRN ×2 (11:46→16:31)
[2023-01-25 16:06] VITALS: BP 156/51; TEMP 98.2; O2SAT 98
[2023-01-25 19:44] VITALS: BP 155/57; TEMP 97.7; O2SAT 98
[2023-01-25] MEDS: DOCUSATE SODIUM 100 MG CAPSULE PO PRN (20:35)
[2023-01-25] MEDS: CHOLECALCIFEROL 1,000 UNIT TABLET PO SCH (20:40)
[2023-01-25] MEDS: ATORVASTATIN 20 MG TABLET PO SCH (20:40)
[2023-01-25] MEDS: SIMETHICONE 80 MG TAB.CHEW PO PRN (20:41)
[2023-01-25] MEDS: MELATONIN 3 MG TABLET PO PRN (20:57)
[2023-01-26 05:30] VITALS: BP 154/64; TEMP 97.8; O2SAT 97
[2023-01-26] MEDS: PIPERACILLIN SODIUM/TAZOBACTAM 3.375 G in IV DEXTROSE 5% 100 ML IV SCH (06:07)
[2023-01-26] MEDS: LEVOTHYROXINE SODIUM 50 MCG TABLET PO SCH (06:09)
[2023-01-26] MEDS: METOCLOPRAMIDE HCL 10 MG TABLET PO SCH ×3 (06:35→16:19)
[2023-01-26] MEDS: BLOOD SUGAR DIAGNOSTIC 1 EACH STRIP VI SCH ×4 (06:36→20:31)
[2023-01-26 06:58] LABS: BASOPHILS # (AUTO) 0.1 K/UL (0.0-0.2); EOSINOPHILS # (AUTO) 0.3 K/uL (0.0-0.7); HEMATOCRIT 32.5 % (31.2-41.9); HEMOGLOBIN 10.9 g/dL (10.9-14.3); LYMPHOCYTES # (AUTO) 0.9 K/uL (0.8-4.8); LYMPHOCYTES % (AUTO) 17.6 % (20.5-51.5); MEAN CORPUSCULAR HEMOGLOBIN 30.7 uug (24.7-32.8); MEAN CORPUSCULAR HGB CONC 33 g/dL (32.3-35.6); MEAN CORPUSCULAR VOLUME 91.9 fL (75.5-95.3); MONOCYTES # (AUTO) 0.6 K/uL (0.1-1.30); MONOCYTES % (AUTO) 11.2 % (0.0-11.0); NEUTROPHILS # (AUTO) 3.4 K/uL (1.8-8.9); NEUTROPHILS % (AUTO) 64.2 % (38.5-71.5); PLATELET COUNT (AUTO) 211 K/uL (179-408); RED BLOOD CELL COUNT(AUTO) 3.54 MIL/uL (3.63-4.92); RED CELL DISTRIBUTION WIDTH 19.8 % (12.3-17.7); WHITE BLOOD COUNT (AUTO) 5.3 K/uL (3.8-11.8)
[2023-01-26 07:15] LABS: CALCIUM 9.1 mg/dL (8.5-10.1); CARBON DIOXIDE 25 mmol/L (21-32); CHLORIDE 101 mmol/L (98-107); CREATININE 0.6 mg/dL (0.6-1.3); GLUCOSE 128 mg/dL (74-106); POTASSIUM 4.1 mmol/L (3.5-5.1); SODIUM SERUM 135 mmol/L (136-145); UREA NITROGEN, BLOOD 19 mg/dL (7-18)
[2023-01-26 07:18] LABS: DIFFERENTIAL COMMENT 1
[2023-01-26] MEDS: ASPIRIN 81 MG TAB.CHEW PO SCH (08:50)
[2023-01-26] MEDS: CARVEDILOL 6.25 MG TABLET PO SCH ×2 (08:51→16:18)
[2023-01-26] MEDS: ESCITALOPRAM OXALATE 10 MG TABLET PO SCH (08:51)
[2023-01-26] MEDS: AMOXICILLIN-CLAVUL 500-125MG TABLET PO SCH ×2 (08:51→20:18)
[2023-01-26] MEDS: LIDOCAINE 5% PATCH TD SCH (08:52)
[2023-01-26] MEDS: APIXABAN 5 MG TABLET PO SCH ×2 (08:54→20:17)
[2023-01-26] MEDS: GLUCERNA 1.2 1000ML LIQUID PO SCH ×2 (08:55→16:19)
[2023-01-26] MEDS: ANASTROZOLE 1 MG TABLET PO SCH (08:55)
[2023-01-26] MEDS ORDERED: ALBUTEROL SULFATE 2.5 MG/3 ML NEBU NEB PRN (10:15)
[2023-01-26 10:45] VITALS: BP 166/47
[2023-01-26] MEDS: AMLODIPINE 10 MG TABLET PO SCH (11:29)
[2023-01-26 11:31] VITALS: BP 162/49; TEMP 97.9; O2SAT 98
[2023-01-26] MEDS: INSULIN REGULAR, HUMAN 300 UNIT/3 ML VIAL SQ PRN ×2 (11:39→16:28)
[2023-01-26 15:38] VITALS: BP 148/46; TEMP 97.6; O2SAT 97
[2023-01-26] MEDS: ACETAMINOPHEN 325 MG TABLET PO PRN (18:40)
[2023-01-26 18:55] VITALS: BP 128/46
[2023-01-26 20:08] VITALS: BP 142/58; TEMP 97.3; O2SAT 96
[2023-01-26] MEDS: ATORVASTATIN 20 MG TABLET PO SCH (20:18)
[2023-01-26] MEDS: ACIDOPHILUS/BULGARICUS CHEW TAB GT SCH (20:18)
[2023-01-26] MEDS: CHOLECALCIFEROL 1,000 UNIT TABLET PO SCH (20:18)
[2023-01-26] MEDS: DOCUSATE SODIUM 100 MG CAPSULE PO PRN (20:19)
[2023-01-26] MEDS: MELATONIN 3 MG TABLET PO PRN (20:20)
[2023-01-27] MEDS: ACETAMINOPHEN 325 MG TABLET PO PRN (03:51)
[2023-01-27 05:48] VITALS: BP 147/55; TEMP 98.3; O2SAT 95
[2023-01-27] MEDS: BLOOD SUGAR DIAGNOSTIC 1 EACH STRIP VI SCH ×2 (06:38→11:35)
[2023-01-27] MEDS: LEVOTHYROXINE SODIUM 75 MCG TABLET PO SCH (06:39)
[2023-01-27] MEDS: METOCLOPRAMIDE HCL 10 MG TABLET PO SCH ×2 (06:39→11:32)
[2023-01-27 07:15] LABS: CARBON DIOXIDE 28 mmol/L (21-32); CHLORIDE 103 mmol/L (98-107); CREATININE 0.6 mg/dL (0.6-1.3); GLUCOSE 131 mg/dL (74-106); SODIUM SERUM 138 mmol/L (136-145); UREA NITROGEN, BLOOD 19 mg/dL (7-18)
[2023-01-27 07:16] LABS: EOSINOPHILS # (AUTO) 0.3 K/uL (0.0-0.7); EOSINOPHILS % (AUTO) 7.7 % (0.0-7.0); HEMATOCRIT 29.6 % (31.2-41.9); LYMPHOCYTES # (AUTO) 0.7 K/uL (0.8-4.8); LYMPHOCYTES % (AUTO) 17.6 % (20.5-51.5); MEAN CORPUSCULAR HEMOGLOBIN 31.3 uug (24.7-32.8); MEAN CORPUSCULAR HGB CONC 34 g/dL (32.3-35.6); MEAN CORPUSCULAR VOLUME 92.5 fL (75.5-95.3); MONOCYTES # (AUTO) 0.5 K/uL (0.1-1.30); MONOCYTES % (AUTO) 12.5 % (0.0-11.0); NEUTROPHILS # (AUTO) 2.4 K/uL (1.8-8.9); NEUTROPHILS % (AUTO) 61.2 % (38.5-71.5); PLATELET COUNT (AUTO) 187 K/uL (179-408); RED BLOOD CELL COUNT(AUTO) 3.21 MIL/uL (3.63-4.92); RED CELL DISTRIBUTION WIDTH 20.1 % (12.3-17.7); WHITE BLOOD COUNT (AUTO) 3.9 K/uL (3.8-11.8)
[2023-01-27 07:17] LABS: DIFFERENTIAL COMMENT 1
[2023-01-27] MEDS ORDERED: AMOX-430 PO (08:33)
[2023-01-27] MEDS: ASPIRIN 81 MG TAB.CHEW PO SCH (08:56)
[2023-01-27] MEDS: AMOXICILLIN-CLAVUL 500-125MG TABLET PO SCH (08:56)
[2023-01-27] MEDS: APIXABAN 5 MG TABLET PO SCH (09:00)
[2023-01-27] MEDS: ANASTROZOLE 1 MG TABLET PO SCH (09:00)
[2023-01-27] MEDS: CARVEDILOL 6.25 MG TABLET PO SCH (09:01)
[2023-01-27] MEDS: ESCITALOPRAM OXALATE 10 MG TABLET PO SCH (09:01)
[2023-01-27] MEDS: ACIDOPHILUS/BULGARICUS CHEW TAB GT SCH (09:01)
[2023-01-27] MEDS: AMLODIPINE 10 MG TABLET PO SCH (09:01)
[2023-01-27] MEDS: GLUCERNA 1.2 1000ML LIQUID PO SCH (09:02)
[2023-01-27] MEDS: LIDOCAINE 5% PATCH TD SCH (09:03)
[2023-01-27] MEDS: INSULIN REGULAR, HUMAN 300 UNIT/3 ML VIAL SQ PRN (11:37)
[2023-01-27 12:00] VITALS: BP 174/63
[2023-01-27] MEDS ORDERED: VALSARTAN 80 MG TABLET PO ONE (12:00)
[2023-01-27 12:03] VITALS: BP 175/63
[2023-01-27 13:35] VITALS: BP 142/53
== END 2023-01-27 14:30 | disposition home health service (06) | DRG 137 ==
LOC: MEDSURG3 13:24
PROVIDERS: ADMIT Internal Medicine; ATTEND Internal Medicine
DX: J69.0 Pneumonitis due to inhalation of food and vomit (principal); I50.43 Acute on chronic combined systolic (congestive) and diastolic (congestive) heart failure; E44.0 Moderate protein-calorie malnutrition; J96.11 Chronic respiratory failure with hypoxia; D64.9 Anemia, unspecified; E11.9 Type 2 diabetes mellitus without complications; E03.9 Hypothyroidism, unspecified; E78.5 Hyperlipidemia, unspecified; I25.10 Atherosclerotic heart disease of native coronary artery without angina pectoris; R13.10 Dysphagia, unspecified; Z79.01 Long term (current) use of anticoagulants; Z86.73 Personal history of transient ischemic attack (TIA), and cerebral infarction without residual deficits; I11.0 Hypertensive heart disease with heart failure; Z85.3 Personal history of malignant neoplasm of breast; Z79.811 Long term (current) use of aromatase inhibitors; Z68.1 Body mass index [BMI] 19.9 or less, adult; F32.A Depression, unspecified; Z86.718 Personal history of other venous thrombosis and embolism
CPT/HCPCS: 36415; 71045; 85025; G0378; J1815; J2543; J8597